=== PATIENT | female | born 1940 | race Caucasian/White ===

== ENCOUNTER → 2016-12-04 | Outpatient (CLI) | payer OTHER | LOC: FIMAGING 11:26 | PROVIDERS: ATTEND Physician Assistant | DX: Z12.31 Encounter for screening mammogram for malignant neoplasm of breast (principal); Z80.3 Family history of malignant neoplasm of breast | CPT/HCPCS: G0202 ==

== ENCOUNTER → 2016-12-11 | Outpatient (CLI) | payer OTHER | LOC: BMCIMAGING 13:17 | PROVIDERS: ATTEND Physician Assistant | DX: E04.2 Nontoxic multinodular goiter (principal) | CPT/HCPCS: 76536-PO ==

== ENCOUNTER → 2017-12-05 | Outpatient (CLI) | payer OTHER | LOC: FIMAGING 11:31 | PROVIDERS: ATTEND Physician Assistant | DX: Z12.31 Encounter for screening mammogram for malignant neoplasm of breast (principal) ==

== ENCOUNTER → 2018-04-20 | Outpatient (CLI) | payer OTHER | LOC: FIMAGING 12:10 | PROVIDERS: ATTEND Orthopaedic Surgery | DX: Z01.818 Encounter for other preprocedural examination (principal); M17.11 Unilateral primary osteoarthritis, right knee; M85.661 Other cyst of bone, right lower leg ==

== ENCOUNTER 2018-05-15 08:46 | Inpatient (IN) | payer OTHER ==
--- NOTE | 2018-05-07 15:28 | ASMTCMCOM ---
CM Note CM Note Notes: Telephone call to pt per MD office request: Pt scheduled for R TKA 05/15/18, anticipates she will qualify for SNF. [facility]. CM to assess pt after surgery and follow while at [facility]. Date Signed: 05/07/2018 03:28 PM Electronically Signed By:MOLLY Man
--- NOTE | 2018-05-15 06:21 | PDHPUP ---
History & Physical Update H&P update statement: This history and physical update is based on an assessment of the patient which was completed after admission or registration (within 24 hours), but prior to the surgery/procedure. H&P update: H&P reviewed & patient examined, no change in patient's condition since H&P completed
[~2018-05-15 08:46] MED LIST: ROPIVACAINE 0.2% 80 MG, EPINEPHrine 0.2 MG in SYRINGE 0 ML IU ONE; TRANEXAMIC ACID 3,000 MG in NS (SYRINGE) 50 ML IRR ONE; TRANEXAMIC ACID 3,000 MG/50 ML BAG IRR ONE
[2018-05-15] MEDS ORDERED: DEXAMETHASONE 4 MG/ML VIAL IVP ONE (08:59)
[2018-05-15] MEDS ORDERED: ceFAZolin 2 GM/DEXTROSE 100 ML IV ONE (08:59)
[2018-05-15] MEDS ORDERED: LR 1,000 ML IV ONE (08:59)
[2018-05-15] MEDS ORDERED: ACETAMINOPHEN 325 MG TAB PO ONE (08:59)
[2018-05-15] MEDS ORDERED: FAMOTIDINE 20 MG TAB PO ONE (08:59)
--- NOTE | 2018-05-15 10:57 | PDANEPAE ---
ANE Past Medical History - Cardiovascular History Hx Hypertension: No Hx Arrhythmias: No Hx Chest Pain: No Hx Coronary Artery / Peripheral Vascular Disease: No Hx CHF / Valvular Disease: No Hx Palpitations: No - Pulmonary History Hx COPD: No Hx Asthma/Reactive Airway Disease: No Hx Recent Upper Respiratory Infection: No Hx Oxygen in Use at Home: No Hx Sleep Apnea: No Sleep Apnea Screening Result - Last Documented: Positive Pulmonary History Comment: ANNEMARIE Triggers - Neurologic History Hx Cerebrovascular Accident: No Hx Seizures: No Hx Dementia: No Neurologic History Comment: occasional numbenss in hands from carpel tunnel L> R. Raynaud's disease in hands - Endocrine History Hx Diabetes: No Endocrine History Comment: hypothyroid - Renal History Hx Renal Disorders: No Renal History Comment: nocturnal frequency - Liver History Hx Hepatic Disorders: No - Neurological & Psychiatric Hx Hx Neurological and Psychiatric Disorders: Yes Neurological / Psychiatric History Comment: mild depression - Cancer History Hx Cancer: No - Congenital Disorder History Hx Congenital Disorders: No - GI History Hx Gastrointestinal Disorders: No - Other Health History Other Health History: wears glasses. wears bilateral hearing aids. lower dentures, upper partial. 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 osteoarthritis - Chronic Pain History Chronic Pain: No - Surgical History Prior Surgeries: tonsillectomy. tubal ligation ANE Review of Systems Review of Systems: - Exercise capacity METS (RN): 3 METS ANE Patient History - Allergies Allergies/Adverse Reactions: Penicillins Allergy (Verified 05/06/18 10:24) Pt hasn't had but her daughter and her son are allergic - Home Medications Home Medications: Cholecalciferol Vit D3 [Vitamin D3 2000 units tab (OTC)] 4,000 units PO DAILY [Last Taken 05/01/18] Escitalopram Oxalate [Lexapro] 20 mg PO HS 04/30/18 [Last Taken 05/14/18] Ibuprofen [Motrin (*)] 200 mg PO DAILY PRN 04/30/18 [Last Taken 05/01/18] Levothyroxine [Synthroid 100 mcg (*)] 100 mcg PO MWF 04/30/18 [Last Taken ] Levothyroxine [Synthroid 88 mcg (*)] 88 mcg PO SUTUTHSA 04/30/18 [Last Taken 04/02] Niacin [Niacin 500 mg (*)] 500 mg PO DAILY 04/30/18 [Last Taken 05/01/18] - NPO status NPO Since - Liquids (Date): 05/14/18 NPO Since - Liquids (Time): 20:00 NPO Since - Solids (Date): 05/14/18 NPO Since - Solids (Time): 20:00 - Smoking Hx Smoking Status: Former smoker - Family Anes Hx Family Hx Anesthesia Complications: none ANE Labs/Vital Signs - Vital Signs Blood Pressure: 133/68 Heart Rate: 69 Respiratory Rate: 15 O2 Sat (%): 92 Height: 162.56 cm Weight: 97.069 kg ANE Physical Exam - Airway Mallampati Score: Class 2 - ASA Status ASA Status: II ANE Anesthesia Plan Anesthesia Plan: spinal Regional Anesthesia: adductor canal FNB
[2018-05-15] MEDS ORDERED: PROPOFOL/EMULSION 500 MG/50 ML BOTTLE IV ONE (11:00)
[2018-05-15] MEDS ORDERED: MIDAZOLAM 2 MG/2 ML VIAL ONE (11:00)
[2018-05-15] MEDS ORDERED: fentaNYL 100 MCG/2 ML INJ ONE (11:00)
[2018-05-15] MEDS ORDERED: BUPIVACAINE/DEXTROSE 7.5MG/ML 2 ML SPINAL AMP SP ONE (11:01)
[2018-05-15] MEDS ORDERED: VANCOMYCIN 1 GM VIAL ONE (11:24)
[2018-05-15] MEDS ORDERED: diphenhydrAMINE 25 MG CAP PO PRN (11:32)
[2018-05-15] MEDS ORDERED: ONDANSETRON 4 MG/2 ML VIAL IVP PRN (11:32)
[2018-05-15] MEDS ORDERED: ONDANSETRON DISINTEGRATING 4 MG TAB PO PRN (11:32)
[2018-05-15] MEDS ORDERED: PROMETHAZINE HCL 25 MG SUPPR PR PRN (11:32)
[2018-05-15] MEDS ORDERED: PROMETHAZINE HCL 25 MG/ML INJ IVP PRN ×2 (11:32→13:19)
[2018-05-15] MEDS ORDERED: BISACODYL 10 MG SUPP PR PRN (11:32)
[2018-05-15] MEDS ORDERED: oxyCODONE IR 5 MG TAB PO PRN (11:32)
[2018-05-15] MEDS ORDERED: MAGNESIUM HYDROXIDE 30 ML UDCUP PO PRN (11:32)
[2018-05-15] MEDS ORDERED: LACTULOSE 20 GM/30 ML UDCUP PO PRN (11:32)
[2018-05-15] MEDS ORDERED: DIPHENOXYLATE/ATROPINE LOMOTIL 1 TAB PO PRN (11:32)
[2018-05-15] MEDS ORDERED: TEMAZEPAM 15 MG CAP PO PRN (11:32)
[2018-05-15] MEDS ORDERED: METOCLOPRAMIDE 10 MG/2 ML VIAL IVP PRN (11:32)
[2018-05-15] MEDS ORDERED: POLYETHYLENE GLYCOL 3350 17 GM PKT PO PRN (11:32)
[2018-05-15] MEDS ORDERED: NS 1,000 ML IV SCH (11:45)
[2018-05-15] MEDS ORDERED: ROPIVACAINE HCL 150 MG/30 ML INJ ONE (12:19)
--- NOTE | 2018-05-15 12:41 | POSTOPPROG ---
Post Op Note Date of Operation: 05/15/18 Surgeon: Sharon Alexandra Finishing Tunnel Operator: osmar Guerra PA-C Anesthesiologist: dr. alvarez Anesthesia: Spinal, Other (Specify) (adductor canal block) Pre-op Diagnosis: right knee OA Post-op Diagnosis: same Indication: R knee pain Procedure: R TKA robot assisted Findings: severe knee OA Inf/Abcess present in the surg proc area at time of surgery?: No EBL: 50-100
[2018-05-15] MEDS ORDERED: PROPOFOL 200 MG/20 ML VIAL ONE (12:55)
[2018-05-15] MEDS ORDERED: NALOXONE HCL 0.4 MG/ML INJ IVP PRN (13:19)
[2018-05-15] MEDS ORDERED: NS 500 ML IV PRN (13:19)
[2018-05-15] MEDS ORDERED: fentaNYL 100 MCG/2 ML INJ IVP PRN (13:19)
--- NOTE | 2018-05-15 13:20 | POSTANESTH ---
Post Anesthetic Evaluation Cardiovascular Status: Similar to Pre-Op Cond Respiratory Status: Normal, Stable Level of Consciousness/Mental Status: Can Participate in Eval Pain Control: Adequate, Prn Tx Ordered Nausea/Vomiting Control: Adequate, Prn Tx Ordered Complications Possibly Related to Anesthesia: None Noted
--- NOTE | 2018-05-15 16:05 | PDMN ---
Medical Necessity Medical necessity: Pt meets IP criteria per PA; est los >2 mn s/p R TKA (cpt 81284); comorbid advanced age, CKD & pt lives alone; per order 05/15/18
--- NOTE | 2018-05-15 16:27 | GOP ---
[f rep st] OPERATIVE REPORT DATE OF OPERATION: 05/15/2018 SURGEON: Yvon Alexandra MD BOARDMARKER: Lisa Guerra PA-C ANESTHESIA: Spinal. PREOPERATIVE DIAGNOSIS: Right knee osteoarthritis. POSTOPERATIVE DIAGNOSIS: Right knee osteoarthritis. PROCEDURE PERFORMED: Right total knee arthroplasty with computer navigation and robotic assist. ESTIMATED BLOOD LOSS: 50 cc. PATHOLOGY: Severe tricompartmental osteoarthritis. INDICATIONS: The patient is a 77-year-old female with severe and progressive pain and deformity of the right knee unresponsive to conservative care. The risks and benefits of surgical intervention were explained in detail. DESCRIPTION OF PROCEDURE: The patient was brought to the operative room and placed on the table in the supine position. Spinal anesthesia was induced without difficulty. A pneumatic tourniquet was applied about the right proximal thigh, and the leg was prepped and draped in a sterile fashion. The leg mcclendon was applied. After exsanguination by elevation the tourniquet was inflated to 300 mmHg. Incision was made anterior medial from the tibial tuberosity to a point 2 cm proximal to the superior pole of the patella. Medial parapatellar arthrotomy was carried out from the superior pole of the patella and posteriorly in line with the fibers of the Type II VMO. The medial collateral ligament was elevated and the infrapatellar fat pad was resected. The patella was everted and the articular surface was excised. A 38 mm patellar button was placed. Attention was turned first to the distal aspect of the femur. After exposure of the femur, 2 half pins were placed for fixation of the femoral array. In a similar fashion, 2 pins were placed anteromedial on the tibia for fixation of the tibial array. External land marking and registration of the hip center was performed without difficulty. Internal femoral and tibial registration was carried out without difficulty and the femoral and tibial checkpoints were placed and verified for accuracy. Attention was turned to the femur. The foot print for the size 6 femoral component was cut with the saw using the [employer]ek robotic system and verified for accuracy against the CT based plan. In a similar fashion, the saw was used to cut the footprint for the size 6 tibial component using the CHRIS system and verified for accuracy against the CT based plan. The tibial articular surface was excised without difficulty, followed by the intercondylar box cut. The knee was extended and the remnants of the medial and lateral meniscus were excised. The posterior capsule was injected with ropivacaine, epinephrine and Toradol. A size 6 tibial tray was positioned. Trial reduction was then carried out. There was excellent range of motion, alignment, and stability using the 6 x 13 mm polyethylene. All trials were then removed. The joint was thoroughly irrigated and carefully dried. The pressfit components were implanted. The permanent 6 x 13 mm polyethylene was placed without difficulty. The tourniquet was deflated and all bleeders were coagulated. The wound was thoroughly irrigated and closed using interrupted sutures of 2-0 Vicryl for the joint capsule. The subcu was closed with 3-0 Vicryl and the skin with 4-0 Monocryl. Dermabond and Steri-Strips were applied followed by a compressive dressing. The patient was then moved from the operating room to the recovery room in good condition, having tolerated the procedure well. /[id number]/MODL and [id number]/MODL MTDBola
[2018-05-15] MEDS: ACETAMINOPHEN 325 MG TAB PO SCH ×2 (17:31→23:46)
[2018-05-15] MEDS: ceFAZolin 2 GM/DEXTROSE 100 ML IV SCH (19:04)
[2018-05-15] MEDS: SENNOSIDES/DOCUSATE SODIUM TAB PO SCH (20:06)
[2018-05-15] MEDS: ASPIRIN 81 MG CHEWABLE TAB PO SCH (20:09)
[2018-05-15] MEDS: CYCLOBENZAPRINE 10 MG TAB PO PRN (23:51)
[2018-05-16] MEDS: ceFAZolin 2 GM/DEXTROSE 100 ML IV SCH (03:01)
[2018-05-16] MEDS: ACETAMINOPHEN 325 MG TAB PO SCH ×4 (05:18→23:09)
[2018-05-16] MEDS: NIACIN 500 MG TAB PO SCH ×2 (08:19→08:24)
[2018-05-16] MEDS: ASPIRIN 81 MG CHEWABLE TAB PO SCH ×2 (08:19→21:19)
[2018-05-16] MEDS: FAMOTIDINE 20 MG TAB PO SCH (08:19)
[2018-05-16] MEDS: ESCITALOPRAM OXALATE 10 MG TAB PO SCH ×2 (08:28→21:19)
[2018-05-16] MEDS: SENNOSIDES/DOCUSATE SODIUM TAB PO SCH ×2 (08:48→21:18)
--- NOTE | 2018-05-16 09:22 | SOAPPROG ---
SOAP Progress Note Assessment/Plan: Assessment: Patient is doing well POD 1 s/p R TKA Pain management: pain is well controlled on oral pain meds. VTE ppx: recommend aspirin 81 mg BID for 4 weeks, cont DONA and SCDs Anemia: level is expected initially postop. Asymptomatic. Continue to monitor D/c planning: Patient lives alone at home and has some concerns whether she will be able to discharge to home vs SNF. Placed order for case management assistance. Patient has a daughter that lives in [facility]. Will continue to monitor her progress. D/c most likely sunday. history of elevated Cr, continue to monitor closely. Plan: 05/16/18 09:20 Subjective: patient is doing well, moderate pain, denies SOB, chest pain and n/v Objective: Vital Signs Temp Pulse Resp BP Pulse Ox 37.0 C 71 14 124/57 H 91 L 05/16/18 08:00 05/16/18 08:31 05/16/18 08:00 05/16/18 08:43 05/16/18 08:00 Laboratory Results 05/16/18 04:55 05/16/18 04:55 05/15/18 05/16/18 05/17/18 05:59 05:59 05:59 Intake Total 1250 Output Total 1630 Balance -380 RLE: incision dressing is clean and dry, NVi, +pf/df ICD10 Worksheet Patient Problems: Problems Problem Status Onset Primary localized osteoarthritis of right knee Acute
[2018-05-16] MEDS ORDERED: LEVOTHYROXINE 88 MCG TAB PO SCH (11:36)
[2018-05-16] MEDS: CYCLOBENZAPRINE 10 MG TAB PO PRN ×2 (13:03→23:09)
--- NOTE | 2018-05-16 16:06 | ASMTCMCOM ---
CM Note CM Note Notes: Pt s/p R TKA, resides alone. PT rec SNF. Pt [facility]. [facility] with [facility] admissions reports no bed available Sunday. Pt accepted at [facility]. D/c plan of care: [facility] Sunday Date Signed: 05/16/2018 04:06 PM Electronically Signed By:MOLLY Man
[2018-05-17] MEDS ORDERED: LEVOTHYROXINE 100 MCG TAB PO SCH ×2 (06:00→08:00)
[2018-05-17] MEDS: ACETAMINOPHEN 325 MG TAB PO SCH ×3 (06:24→18:35)
--- NOTE | 2018-05-17 08:45 | SOAPPROG ---
SOAP Progress Note Assessment/Plan: Assessment/Plan: Patient is doing well POD 2 s/p Right TKA robot assist. Pain management: pain is well controlled on oral pain meds. VTE prophylaxis: recommend aspirin 81 mg BID for 4 weeks. She will continue DONA and SCDs while in hospital, she will be discharged with DONA hose. Anemia: level is expected initially postop. Asymptomatic. Continue to monitor D/C planning: Patient lives alone at home and she has been accepted to [facility] Patient has a daughter that lives in [facility]. D/C likely tomorrow. She has a history of elevated Cr, continue to monitor closely. 05/17/18 08:42 Subjective: Patient states she is feeling better today, although she still has some pain and stiffness when she first begins PT. States her pain is better than yesterday. Patient reports that she will be going to [facility] She has not been using the [place] regularly. She denies shortness of breath, chest pain, chills, nausea, vomiting. No new major complaints or concerns at this time. Objective: Vital Signs Temp Pulse Resp BP Pulse Ox 37.1 C 68 16 135/65 H 92 05/17/18 08:00 05/17/18 08:00 05/17/18 08:00 05/17/18 08:00 05/17/18 08:00 Laboratory Results 05/17/18 04:31 05/16/18 04:55 05/16/18 05/17/18 05/18/18 05:59 05:59 05:59 Intake Total 1250 450 Output Total 1630 1050 200 Balance -380 -600 -200 Patient resting comfortably in bed, no acute distress. Nasal canula is in place. RLE: Surgical wound dressing is clean, dry and intact. No drainage. COLIN wrap has slid distally, this was reapplied over the knee. Calf is soft and nontender. She can actively dorsiflex and plantarflex the foot and great toe. Grossly NVI distally. ICD10 Worksheet Patient Problems: Problems Problem Status Onset Chronic Disease Mgmt/Transitional Care Acute Primary localized osteoarthritis of right knee Acute
[2018-05-17] MEDS: ASPIRIN 81 MG CHEWABLE TAB PO SCH ×2 (10:21→21:33)
[2018-05-17] MEDS: NIACIN 500 MG TAB PO SCH (10:21)
[2018-05-17] MEDS: FAMOTIDINE 20 MG TAB PO SCH (10:21)
[2018-05-17] MEDS: SENNOSIDES/DOCUSATE SODIUM TAB PO SCH ×2 (10:22→21:27)
--- NOTE | 2018-05-17 12:54 | ASMTCMCOM ---
CM Note CM Note Notes: CM spoke with Dr. Alexandra, [facility] able to accept patient, looks to be stable for discharge on Sunday. CM to follow. D/C Plan: [facility] Sunday Date Signed: 05/17/2018 12:53 PM Electronically Signed By:Daphne Pritchett
[2018-05-17] MEDS: ESCITALOPRAM OXALATE 10 MG TAB PO SCH (21:33)
[2018-05-18] MEDS: ACETAMINOPHEN 325 MG TAB PO SCH ×2 (00:26→06:24)
[2018-05-18] MEDS ORDERED: LEVOTHYROXINE 88 MCG TAB PO SCH (06:00)
[2018-05-18 08:09] VITALS: BP 116/60
[2018-05-18] MEDS: ASPIRIN 81 MG CHEWABLE TAB PO SCH (10:03)
[2018-05-18] MEDS: NIACIN 500 MG TAB PO SCH (10:03)
[2018-05-18] MEDS: SENNOSIDES/DOCUSATE SODIUM TAB PO SCH (10:03)
[2018-05-18] MEDS: FAMOTIDINE 20 MG TAB PO SCH (10:03)
--- NOTE | 2018-05-18 10:03 | SOAPPROG ---
SOAP Progress Note Assessment/Plan: Patient is doing well POD 3 s/p Right TKA robot assist. Pain management: pain is well controlled on oral pain meds. VTE prophylaxis: recommend aspirin 81 mg BID for 4 weeks. She will continue DONA hose at home. Anemia: level is expected initially postop. Asymptomatic. Continue to monitor D/C planning: Patient states she is feeling better than expected and would rather go home than SNF. Likely d/c to home today. Subjective: Patient states she continues to notice improvement, in fact she is doing better than she expected and would prefer to go home rather than SNF. She denies shortness of breath, chest pain, fever, chills, nausea, vomiting. Objective: Vital Signs Temp Pulse Resp BP Pulse Ox 36.9 C 77 14 116/60 90 L 05/18/18 08:00 05/18/18 08:00 05/18/18 08:00 05/18/18 08:00 05/18/18 08:00 Laboratory Results 05/17/18 04:31 05/16/18 04:55 05/17/18 05/18/18 05/19/18 05:59 05:59 05:59 Intake Total 450 1050 Output Total 1050 351 Balance -600 699 Patient resting comfortably, no acute distress. RLE: Wound dressings clean, dry and intact. + plantarflexion and dorsiflexion of the right foot and great toe. Grossly NVI distally. ICD10 Worksheet Patient Problems: Problems Problem Status Onset Chronic Disease Mgmt/Transitional Care Acute Primary localized osteoarthritis of right knee Acute
--- NOTE | 2018-05-18 10:12 | PDDCSUM ---
Discharge Summary Discharge Summary: Admission date: May 15, 2018 Discharge date: May 18, 2018 Principal pre-operative diagnosis: Right knee osteoarthritis Principal procedure performed: Right TKA, robotic assist. VTE prophylaxis: Aspirin 81 mg PO BID x 4 weeks, DONA hose Follow-up date at Dr. Alexandra's office: June 04, 2018 Brief history: Patient is a 77 yo white female who presented to Dr. Alexandra's office with right knee pain/DJD. She exhausted conservative management and wished to proceed with right TKA, robotic assist. Hospital course: Patient was admitted on May 15, 2018 and the procedure was performed on that day. She tolerated the procedure well, was transferred to the recovery room and then orthopedic floor. Postoperatively she was afebrile and had stable vital signs. Her H&H, vital signs and neurovascular status were monitored on a regular basis. She participated in PT. She was started on aspirin 81 mg BID, DONA hose and SCDs for VTE prophylaxis in the hospital. On the day of discharge, May 18, 2018 she is doing better than she expected. Initially she was wanted to go to a SNF, but at this time she would prefer to go home. She will be discharged home in stable condition.
--- NOTE | 2018-05-18 11:04 | ASMTLACE ---
NELLE Length of stay for Answers: 3 days current admission Acuity / Level of Answers: Yes Care: Did the patient have an inpatient admission? # of Emergency department Answers: 0 visits in the last 6 months Social determinants Answers: Mental health diagnosis (anxiety, depression, pers onality disorders, etc.) Score: 9 Date Signed: 05/18/2018 11:03 AM Electronically Signed By:Drea Delgado
--- NOTE | 2018-05-18 11:05 | ASMTDCNOTE ---
Case Management Discharge Discharge Order Complete? Answers: Yes Patient to Obtain Answers: via Family Medications Transportation Arranged Answers: Family/Friends Faxed Final Orders Answers: Yes Agency/Facility Transfer Answers: Yes Report Printed & Faxed to Receiving Agency Family Notified Answers: Yes Discharge Comments Notes: Pt changed her mind about going to SNF/Rehab and has chosen to go home with home health. A referral was made to [facility] and has been accepted. Date Signed: 05/18/2018 11:05 AM Electronically Signed By:Drea Delgado
--- NOTE | 2018-05-18 16:57 | ASDISCHSUM ---
Discharge Information Plan Status:Home with No Needs Medically Cleared to Leave:05/18/2018 Discharge Date:05/18/2018 12:05 PM D/C Disposition:Home, Routine, Self-Care ADT D/C Disposition:Home, Routine, Self-Care Projected Discharge Date:05/18/2018 11:00 AM Transportation at D/C:Family Discharge Delay Reason: Follow-Up Date:05/18/2018 11:00 AM Discharge Slot: Final Diagnosis: Placement Information Referral Type:*Long-Term/SNF Referral ID:[id number] Provider Name: Address 1: Phone Number: Address 2: Fax Number: City: Selection Factors: State: Referral Type:*Home Health Care Services Referral ID:[id number] Provider Name: Address 1: Phone Number: Address 2: Fax Number: City: Selection Factors: State: Patient Contact Information Contact Name:IRMA Relationship:Daughter Address: Work Phone: City: Alternate Phone: [facility] Code: Email: Financial Information Financial Class:Medicare Primary Plan Desc:MEDICARE INPATIENT Primary Plan Number:[id number] Secondary Plan Desc: Secondary Plan Number:[id number] Assessment Information [facility] CM Progress Note CM Note CM Note Notes: Telephone call to pt per MD office request: Pt scheduled for R TKA 05/15/18, anticipates she will qualify for SNF. [facility]. MATA to assess pt after surgery and follow while at [facility]. Date Signed: 05/07/2018 03:28 PM Electronically Signed By:MOLLY Man LACE LACHarjinder Length of stay for Answers: 3 days current admission Acuity / Level of Answers: Yes Care: Did the patient have an inpatient admission? # of Emergency department Answers: 0 visits in the last 6 months Social determinants Answers: Mental health diagnosis (anxiety, depression, pers onality disorders, etc.) Score: 9 Date Signed: 05/18/2018 11:03 AM Electronically Signed By:Drea Delgado [facility] CM Progress Note CM Note CM Note Notes: Pt s/p R TKA, resides alone. PT rec SNF. Pt [facility] referrals to [facility] and [facility]. [facility] with admissions reports no bed available Sunday. Pt accepted at [facility]. D/c plan of care: [facility] Sunday Date Signed: 05/16/2018 04:06 PM Electronically Signed By:MOLLY Man [facility] CM Progress Note CM Note CM Note Notes: CM spoke with Dr. Alexandra, [facility] is able to accept patient, looks to be stable for discharge on Sunday. CM to follow. D/C Plan: [facility] Sunday Date Signed: 05/17/2018 12:53 PM Electronically Signed By:Daphne Pritchett Case Management Discharge Plan Note Case Management Discharge Discharge Order Complete? Answers: Yes Patient to Obtain Answers: via Family Medications Transportation Arranged Answers: Family/Friends Faxed Final Orders Answers: Yes Agency/Facility Transfer Answers: Yes Report Printed & Faxed to Receiving Agency Family Notified Answers: Yes Discharge Comments Notes: Pt changed her mind about going to SNF/Rehab and has chosen to go home with home health. A referral was made to [facility] and has been accepted. Date Signed: 05/18/2018 11:05 AM Electronically Signed By:Drea Delgado [facility] CM Progress Note CM Note CM Note Notes: 05/18/2018 Case Management Note Phone call from [facility] requesting interagency. Phone call to Pati Krueger preferred pt be home without services for the weekend. Pati instructed pt to call office if there are any difficulties over the weekend. Notified [facility] to disregard referral. Case Management d/c poc: home with family support. Date Signed: 05/18/2018 04:56 PM Electronically Signed By:Kelsey Welch RN Intervention Information Intervention Type:*IM-Signed Date of Service:05/17/2018 11:45 AM Patient Type:Inpatient Staff Member:Osiris Polanco Hours: Discipline: Severity: Comment:
--- NOTE | 2018-05-18 16:57 | ASMTCMCOM ---
CM Note CM Note Notes: 05/18/2018 Case Management Note Phone call from [facility] requesting interagency. Phone call to Pati GUEVARA. Pati preferred pt be home without services for the weekend. Pati instructed pt to call office if there are any difficulties over the weekend. Notified [facility] to disregard referral. Case Management d/c poc: home with family support. Date Signed: 05/18/2018 04:56 PM Electronically Signed By:Kelsey Welch RN
== END 2018-05-18 12:05 | disposition home or self-care (01) | DRG 470 ==
LOC: F3N 08:46
PROVIDERS: ADMIT Orthopaedic Surgery; ATTEND Orthopaedic Surgery
PROC: 8E0Y0CZ Robotic Assisted Procedure of Lower Extremity, Open Approach (ICD-10-PCS; principal; 2018-05-15 11:00)
PROC: 0SRC0JZ Replacement of Right Knee Joint with Synthetic Substitute, Open Approach (ICD-10-PCS; principal; 2018-05-15 11:00)
DX: M17.11 Unilateral primary osteoarthritis, right knee (principal); E03.9 Hypothyroidism, unspecified; Z87.891 Personal history of nicotine dependence
CPT/HCPCS: 97110-GP; 97116-GP; 97162-GP; C1713; J0171; J0690; J1100; J2250; J2704; J2795; J3010; J3370